=== PATIENT | female | born 1995 | race American Indian/Alaskan Native ===

== ENCOUNTER 2016-11-20 19:36 | Emergency (ER) | payer OTHER ==
[~2016-11-20] VITALS: Ht 175.3 cm; Wt 72.7 kg
[~2016-11-20 19:36] MED LIST: AMOXICILLIN 8751 TAB PO; BACTRIM DS 8001 TAB PO; CEFTIN500 MG PO; NORCO 325 MG-51 TAB PO; OMNICEF 300MG300 MG PO; PREDNISONE20 MG PO; PYRIDIUM200 M1 PO
[2016-11-20 19:51] VITALS: TEMP 98.5
[2016-11-20 20:54] LABS: PH 6 (5-8); SQUAMOUS EPITHELIAL None Seen /hpf; URINE APPEARANCE Clear; URINE BACTERIA None Seen /hpf; URINE BILIRUBIN Negative (NEGATIVE); URINE BLOOD 2+ (NEGATIVE); URINE COLOR Yellow; URINE GLUCOSE Negative (NEGATIVE); URINE KETONE Negative (NEGATIVE); URINE UROBILINOGEN Negative (NEGATIVE); URINE WBC 0-2 /hpf
[2016-11-20] MEDS ORDERED: PYRIDIUM200 M1 PO (23:05)
[2016-11-20] MEDS ORDERED: CEPHALEXIN500 M1 PO (23:05)
[2016-11-20 23:39] VITALS: BP 132/72; PULSE 78
[2016-11-21 01:04] LABS: CHLAMYDIA/TRACH by PCR Female NOT DETECTED; NEISSERIA GON by PCR Female NOT DETECTED
== END 2016-11-20 23:40 | disposition home or self-care (01) ==
LOC: COL.ER 19:36
PROVIDERS: Physician Assistant
DX: R30.0 Dysuria (principal)
CPT/HCPCS: J1885